=== PATIENT | female | born 1975 | race African-American/Black ===

== ENCOUNTER → 2017-02-02 | Outpatient (CLI) | payer OTHER ==
--- NOTE | 2017-02-02 16:01 | KCIC ---
Examination: Two views of chest. HISTORY History of wheezing. COMPARISON None available. Findings: The cardiomediastinal silhouette grossly appears unremarkable. There is mild prominent appearing bilateral perihilar bronchovascular markings. No evidence of pleural effusion pneumothorax identified. Impression: Mild prominent appearing bilateral perihilar bronchovascular markings likely bronchitis. Electronically signed by: Andrew Buckley (Feb 02, 2017 16:01:09)
== END | disposition home or self-care (01) ==
LOC: KCIC 15:06
PROVIDERS: ATTEND Nurse Practitioner Family
DX: R06.2 Wheezing (principal); R07.89 Other chest pain
CPT/HCPCS: 71020

== ENCOUNTER → 2018-01-24 | Outpatient (CLI) | payer OTHER ==
[2018-01-24] MEDS: ZOLPIDEM 5 MG TABLET. PO (23:48)
== END | disposition home or self-care (01) ==
LOC: SLPLAB 19:02
DX: R06.83 Snoring (principal)
CPT/HCPCS: 95810

== ENCOUNTER 2018-06-28 08:04 | Day surgery (SDC) | payer OTHER ==
[~2018-06-28 08:04] MED LIST: IV RINGERS,LACTATED 1000ML 1,000 ML IV; LIDOCAINE 1% PF 2 ML VIAL. ID; MORPHINE SULFATE 2 MG/ML DISP.SYRIN. IV; ONDANSETRON PF 4 MG/2 ML VIAL. IV; PROCHLORPERAZINE 10 MG/2 ML VIAL. IV; fentaNYL PF VIAL 100 MCG/2 ML VIAL IV
[2018-06-28] MEDS ORDERED: PROPOFOL 20 ML IV (08:16)
[2018-06-28] MEDS ORDERED: LIDOCAINE 2% 100 MG/5 ML SYRINGE. (08:16)
[2018-06-28] MEDS ORDERED: MIDAZOLAM HCL/PF 2 MG/2 ML VIAL. (08:16)
[2018-06-28 09:44] LABS: POC GLUCOSE 135 mg/dL (70-99)
== END 2018-06-28 10:27 | disposition home or self-care (01) ==
LOC: SURG 08:04
DX: J32.0 Chronic maxillary sinusitis (principal); G93.89 Other specified disorders of brain; Z88.0 Allergy status to penicillin
CPT/HCPCS: 70551; 82962; J2250; J2704

== ENCOUNTER → 2018-09-14 | Outpatient (CLI) | payer OTHER ==
[2018-06-28 09:55] VITALS: BP 133/85
[~2018-09-14] MED LIST changes: +IOHEXOL 240 MG/ML 50ML VIAL. PO ONE; -IV RINGERS,LACTATED 1000ML 1,000 ML IV; -LIDOCAINE 1% PF 2 ML VIAL. ID; -MORPHINE SULFATE 2 MG/ML DISP.SYRIN. IV; -ONDANSETRON PF 4 MG/2 ML VIAL. IV; -PROCHLORPERAZINE 10 MG/2 ML VIAL. IV; -fentaNYL PF VIAL 100 MCG/2 ML VIAL IV
[2018-09-14] MEDS: IOHEXOL 300 MG/ML 100ML VIAL. IV ONE (10:30)
[2018-09-14 11:09] LABS: CREATININE 1.2 mg/dL (0.6-1.0); GFR 59.1
--- NOTE | 2018-09-14 14:37 | RAD ---
CT ABD PELV W/ORAL IV CONTRAST dated 09/14/2018 11:50 AM Indication: Pain.ABDOMINAL PAIN, LOWER. FIBROID. PERSONAL HISTORY OF SEX REASSIGNMENT. OMNI 240, 30ML & OMNI 300, 75ML. Comparison: No comparison is available. Technique: Contiguous axial imaging of the abdomen and pelvis performed after the intravenous administration of 75 cc Omnipaque 300. One or more of the following individualized dose reduction techniques were utilized for this examination: 1. Automated exposure control 2. Adjustment of the mA and/or kV according to patient size 3. Use of iterative reconstruction technique Findings: Limited images of lung bases show mild patchy and linear opacities in the lower lobes, likely atelectasis. Heart size upper limits of normal. No pleural or pericardial effusion. Liver, spleen, pancreas, adrenal glands and kidneys are unremarkable. No hydronephrosis. There is a prominent parapelvic cyst on the right. Gallbladder is surgically absent. Partially opacified GI tract normal in caliber and contour. No focal bowel wall thickening. No inflammatory stranding in the mesentery. The appendix is not identified. No inflammatory stranding in the right lower quadrant. No ascites or lymphadenopathy. The abdominal aorta is normal in caliber. Images the pelvis show heterogeneous enlarged uterus with low-density lesion in the myometrium that measures up to 5 cm. The endometrium is not well demonstrated on this exam. The ovaries are unremarkable. No free fluid or lymphadenopathy. Bone windows show no acute findings. Multilevel spondylosis. IMPRESSION: 1. No acute abnormality of abdomen or pelvis. 2. Fibroid uterus. If indicated, a pelvic ultrasound would better evaluate. 3. Status post cholecystectomy. Electronically signed by: Abdi Sexton MD (09/14/2018 2:34 PM) [id number]
== END | disposition home or self-care (01) ==
LOC: CT 10:18
PROVIDERS: ATTEND Family Medicine
DX: D25.9 Leiomyoma of uterus, unspecified (principal); M47.896 Other spondylosis, lumbar region; N85.2 Hypertrophy of uterus; N94.89 Other specified conditions associated with female genital organs and menstrual cycle; R91.8 Other nonspecific abnormal finding of lung field; Z87.890 Personal history of sex reassignment
CPT/HCPCS: 36415; 74177; 82565; Q9966; Q9967

== ENCOUNTER 2019-07-28 07:38 | Emergency (ER) | payer MEDICAID ==
[~2019-07-28] VITALS: Ht 154.9 cm; Wt 86.2 kg
--- NOTE | 2019-07-28 07:59 | PHYS DOC ---
Past Medical History Past Medical History: Diabetes-Type II, Hypertension Past Surgical History: No Surgical History Alcohol Use: None Drug Use: None Adult General Chief Complaint Chief Complaint: OTHER COMPLAINTS HPI HPI Patient is a 44 year old male who presents with accidental ingestion of BP medication Pt with a hx of HTN, taking Triamterene HCTZ, 37.5mg, Has been taking this for years. 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 Reports he thought the 2nd pill was his usual Gabapentin. He arrives today for evaluation. No complaints. resting in no distress. No CP dizziness. Review of Systems Review of Systems Constitutional: Denies fever or chills [] Accidental ingestion of extra BP medication Eyes: Denies change in visual acuity, redness, or eye pain [] HENT: Denies nasal congestion or sore throat [] Respiratory: Denies cough or shortness of breath [] Cardiovascular: No additional information not addressed in HPI [] GI: Denies abdominal pain, nausea, vomiting, bloody stools or diarrhea [] : Denies dysuria or hematuria [] Musculoskeletal: Denies back pain or joint pain [] Integument: Denies rash or skin lesions [] Neurologic: Denies headache, focal weakness or sensory changes [] Endocrine: Denies polyuria or polydipsia [] All other systems were reviewed and found to be within normal limits, except as documented in this note. Current Medications Current Medications Glipizide Gabapentin Triamterene Allergies Allergies Allergies Coded Allergies Type Severity Reaction Last Updated Verified Penicillins Allergy Intermediate 01/24/18 Yes ciprofloxacin Allergy Intermediate itchy rash 07/28/19 Yes clindamycin Allergy Intermediate itchy rash 07/28/19 Yes azithromycin Adverse Reaction Severe "lost my taste and smell" 07/28/19 Yes Zithromax Clindamycin Physical Exam Physical Exam Constitutional: Well developed, well nourished, no acute distress, non-toxic appearance. [] HENT: Normocephalic, atraumatic, bilateral external ears normal, oropharynx moist, no oral exudates, nose normal. [] Eyes: PERRLA, EOMI, conjunctiva normal, no discharge. [] Neck: Normal range of motion, no tenderness, supple, no stridor. [] Cardiovascular:Heart rate regular rhythm, no murmur [] Lungs & Thorax: Bilateral breath sounds clear to auscultation [] Abdomen: Bowel sounds normal, soft, no tenderness, no masses, no pulsatile masses. [] Skin: Warm, dry, no erythema, no rash. [] Back: No tenderness, no CVA tenderness. [] Extremities: No tenderness, no cyanosis, no clubbing, ROM intact, no edema. [] Neurologic: Alert and oriented X 3, normal motor function, normal sensory function, no focal deficits noted. [] Psychologic: Affect normal, judgement normal, mood normal. [] Current Patient Data Vital Signs Vital Signs Date Time Temp Pulse Resp B/P (MAP) Pulse Ox O2 Delivery O2 Flow Rate FiO2 07/28/19 08:19 158/84 (108) 07/28/19 07:45 98.3 94 16 100 Room Air 98.3 EKG EKG [] Radiology/Procedures Radiology/Procedures [] Impressions: Medical evaluation, accidental overdose/ingestion of blood pressure medication Course & Med Decision Making Course & Med Decision Making Pertinent Labs and Imaging studies reviewed. (See chart for details) []Patient here for evaluation after accidental ingestion of an extra Triamterene. 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 No dizziness. States he has been on this medication for years. Reports that his home BP cuff recently broke Monitored for over 1 hour, BP at DC 160/82 Remains with no dizziness or symptoms, ate meal Stable for home care educated on home care fu and reasons to return to the ER / Kateryna Disclaimer Dragon Disclaimer This electronic medical record was generated, in whole or in part, using a voice recognition dictation system. Departure Departure Impression: Primary Impression: Hypertension Disposition: 01 HOME, SELF-CARE Condition: STABLE Referrals: ANTHONY CEDENO MD (PCP) Patient Instructions: Hypertension, Overdose, Accidental Additional Instructions: Go home and rest Purchase another BP monitor Monitor your blood pressure Change positions slowly, may get dizzy For any concerns, dizziness, passing out or other concerns return to the ER Scripts No Active Prescriptions or Reported Meds JENNIFER BELL APRN Jul 28, 2019 07:59
[2019-07-28 08:40] VITALS: BP 162/84
== END 2019-07-28 08:54 | disposition home or self-care (01) ==
LOC: ER 07:38
DX: T50.2X1A Poisoning by carbonic-anhydrase inhibitors, benzothiadiazides and other diuretics, accidental (unintentional), initial encounter (principal); I10 Essential (primary) hypertension; E11.9 Type 2 diabetes mellitus without complications; Z88.0 Allergy status to penicillin; Z88.1 Allergy status to other antibiotic agents; Y92.89 Other specified places as the place of occurrence of the external cause
CPT/HCPCS: 99283

== ENCOUNTER → 2019-10-16 | Outpatient (CLI) | payer MEDICAID ==
[~2019-10-16] MED LIST changes: +AMOX500C PO; +ARIP20TA5 PO; +CLON0.5T PO; +DILT180T7 PO; +DOCU50CA9 PO; +EXEN2PEN SQ; +GLIP5TAB10 PO; +HYDR50TA6 PO; -IOHEXOL 240 MG/ML 50ML VIAL. PO ONE; +LOSA100T14 PO; +METF100010 PO; +OMEP20TA63 PO; +OXYC1TAB15 PO; +TEST200V3 IM; +TRIA1CAP3 PO; +VENL150C PO
[2019-10-17 01:07] LABS: HEMOGLOBIN A1C 8.4 % (4.8-5.6)
== END | disposition home or self-care (01) ==
LOC: SURGPAT 12:38 → EDSEX 12:38
PROVIDERS: ATTEND Surgery
DX: Z01.818 Encounter for other preprocedural examination (principal); R22.1 Localized swelling, mass and lump, neck
CPT/HCPCS: 36415; 83036

== ENCOUNTER 2019-10-23 06:30 | Day surgery (SDC) | payer MEDICAID ==
[~2019-10-23] VITALS: Ht 154.9 cm; Wt 93.5 kg
[~2019-10-23 06:30] MED LIST changes: -AMOX500C PO; +BUPIVACAINE-EPI 0.5%-1:200000 MPF 30 ML VIAL. INJ PRN; -DOCU50CA9 PO; -OXYC1TAB15 PO
[2019-10-23] MEDS ORDERED: HYDROmorphone 2 MG/ML VIAL IV PRN (07:00)
[2019-10-23] MEDS ORDERED: MORPHINE SULFATE 2 MG/ML VIAL. IV PRN (07:00)
[2019-10-23] MEDS ORDERED: PROCHLORPERAZINE 10 MG/2 ML VIAL. IV PRN (07:00)
[2019-10-23] MEDS ORDERED: ONDANSETRON PF 4 MG/2 ML VIAL. IV PRN (07:00)
[2019-10-23] MEDS ORDERED: fentaNYL PF VIAL 100 MCG/2 ML VIAL IV PRN ×2 (07:00)
[2019-10-23] MEDS ORDERED: IV RINGERS,LACTATED 1000ML 1,000 ML IV SCH (07:00)
[2019-10-23] MEDS ORDERED: INSULIN LISPRO 100 UNIT/ML 3ML VIAL for OP,RR ONLY. SQ PRN (07:15)
[2019-10-23] MEDS ORDERED: LIDOCAINE 2% PF 5 ML VIAL. ONE (07:21)
[2019-10-23] MEDS ORDERED: PROPOFOL 20 ML IV ONE (07:21)
[2019-10-23] MEDS ORDERED: AMOX500C PO (07:24)
[2019-10-23] MEDS ORDERED: MIDAZOLAM HCL/PF 2 MG/2 ML VIAL. ONE (07:36)
[2019-10-23] MEDS ORDERED: ESMOLOL 100 MG/10 ML VIAL. IVP ONE ×2 (07:42→07:53)
[2019-10-23] MEDS ORDERED: KETOROLAC 30 MG/ML VIAL. ONE (07:53)
[2019-10-23] MEDS ORDERED: DEXAMETHASONE SOD PHOS 4 MG/ML VIAL ONE (07:53)
[2019-10-23] MEDS ORDERED: SEVOFLURANE 31 TO 60 MINUTES. IH ONE (07:53)
[2019-10-23] MEDS ORDERED: ONDANSETRON PF 4 MG/2 ML VIAL. ONE (07:53)
[2019-10-23] MEDS ORDERED: PHENYLEPHRINE in 0.9% NACL PF 1 MG/10 ML SYRINGE. IV ONE (07:54)
[2019-10-23] MEDS ORDERED: ceFAZolin 2GM PREMIX 2 GM/50 ML BAG IV ONE (08:00)
--- NOTE | 2019-10-23 08:31 | PDOC ---
BRIEF OPERATIVE NOTE Date: Oct 23, 2019 Pre-Op Diagnosis sebaceous cyst posterior neck Post-Op Diagnosis same Procedure Performed excision Surgeon Serge Anesthesia Type: General Blood Loss 5cc IV Fluid 650cc Specimens Obtained skin and subcutaneous tissue 3x2x1 cm Findings sebaceous cyst/abscess Complications none Operative Note Wk # [id number] DAVID LEZAMA MD Oct 23, 2019 08:31
[2019-10-23] MEDS ORDERED: DOCU50CA9 PO (08:37)
[2019-10-23] MEDS ORDERED: OXYC1TAB15 PO (08:37)
[2019-10-23] MEDS ORDERED: oxyCODONE/APAP 5/325 1 TAB TABLET ONE (08:38)
[2019-10-23] MEDS ORDERED: oxyCODONE/APAP 5/325 1 TAB TABLET PO ONE (08:45)
--- NOTE | 2019-10-23 08:47 | OP ---
DATE OF SURGERY: 10/23/2019 PREOPERATIVE DIAGNOSIS: Sebaceous cyst, posterior neck. POSTOPERATIVE DIAGNOSIS: Sebaceous cyst, posterior neck. PROCEDURE: Excision. SURGEON: David Lezama MD ANESTHESIA: General LMA. ESTIMATED BLOOD LOSS: 5. INTRAVENOUS FLUIDS: 650. DESCRIPTION OF PROCEDURE: The patient brought to the operating suite, given a general LMA and placed in left lateral decubitus position. Posterior neck was prepped and draped in usual sterile fashion. The elliptical incision, which had been marked in the preop area with the patient's assistance, was infiltrated with local anesthetic, incised and the skin and underlying process removed intact. Hemostasis with cautery. Wound closed with interrupted vertical mattress and simple stitches of 3-0 Prolene. Sterile dressing applied. The patient taken out of the lateral decubitus position, awakened from her anesthetic and taken to the recovery room in satisfactory condition. DAVID LEZAMA MD DR: MARY/precious JOB#: [id number] / [id number]
[2019-10-23 09:00] VITALS: BP 139/79
--- NOTE | 2019-10-25 18:06 | PATHOLOGY ---
[facility] Accession Number: [id number] . 01 Material submitted: . neck - EXCISION CYST, POSTERIOR NECK. Modifiers: posterior . 01 Clinical history: . Skin and subcutaneous tissue, 3 x 2 x 1, neck mass . 02 Diagnosis: Skin and subcutaneous tissue, posterior neck mass: - Abscess with chronic inflammation, focal foreign body giant cell reaction, and surrounding reactive fibrosis. (JPM:firmware software verification engineer; 10/25/2019) R 10/25/2019 1459 Local . 02 Comment: The abscess may well be the result of a ruptured hair follicle/follicular cyst. There is no evidence of malignancy. (JPM:firmware software verification engineer; 10/25/2019) . 02 Electronically signed: . Buzz To MD, Pathologist NPI- [id number] . 01 Gross description: . Received in formalin, labeled "Roger, [place], skin and subcutaneous tissue", is an unoriented ellipse of hairbearing, jacob-brown skin measuring 2.5 x 1.3 cm excised to a depth of 1.0 cm. The skin surface has a longitudinal defect extending from one tip to another this is inked orange. The resection margins are inked black. The specimen is serially sectioned to show a donald-white to yellow fibrous cut surface with no discrete cyst present. Contiguous sections are entirely submitted in A1-A6. ([facility]; 10/23/2019) [facility] 10/25/2019 1457 Local . 02 Pathologist provided ICD-10: L02.11, L98.9, L90.5 . 02 CPT . 188238 Specimen Comment: A courtesy copy of this report has been sent to [phone], [phone] Specimen Comment: [id number] Specimen Comment: Report sent to / DR CEDENO Specimen Comment: Report sent to Performed at: 01 [facility] [address], [place] [id number] MD Cal Angel MD Phone: [phone] Performed at: 02 [facility] [place] [address] [place], [place] [id number] MD Buzz To MD Phone: [phone]
== END 2019-10-23 09:20 | disposition home or self-care (01) ==
LOC: EDSEX → SURG 06:30
PROVIDERS: ATTEND Surgery
DX: L72.3 Sebaceous cyst (principal); G47.30 Sleep apnea, unspecified; I10 Essential (primary) hypertension; J45.909 Unspecified asthma, uncomplicated; K21.9 Gastro-esophageal reflux disease without esophagitis; E11.9 Type 2 diabetes mellitus without complications; F32.9 Major depressive disorder, single episode, unspecified; F41.9 Anxiety disorder, unspecified; G43.909 Migraine, unspecified, not intractable, without status migrainosus; Z90.49 Acquired absence of other specified parts of digestive tract; Z79.84 Long term (current) use of oral hypoglycemic drugs; Z79.899 Other long term (current) drug therapy
CPT/HCPCS: 11423; 82962; 88304; A7015; J0696; J1100; J1885; J2001; J2250; J2370; J2405; J2704; J3490

== ENCOUNTER → 2021-10-20 | Outpatient (CLI) | payer MEDICAID ==
[~2021-10-20] MED LIST changes: +AMOX500C PO; -BUPIVACAINE-EPI 0.5%-1:200000 MPF 30 ML VIAL. INJ PRN; +DOCU50CA9 PO; -HYDR50TA6 PO; +HYDR50TA9 PO; +OXYC1TAB15 PO
--- NOTE | 2021-10-20 14:40 | KCIC ---
EXAM: Right wrist, 3 views. HISTORY: Difficulty with deputy director. COMPARISON: None. FINDINGS: 3 views of the right wrist are obtained. There is no acute fracture, dislocation or subluxa tion. There is suspected negative ulnar variance, a normal variant. There is no foreign body or soft tissue lesion. IMPRESSION: No acute osseous finding. Electronically signed by: Carolina Adair MD (10/20/2021 2:38 PM) [id number]
== END ==
LOC: KCIC 14:21
PROVIDERS: ATTEND Family Medicine
DX: M25.531 Pain in right wrist (principal)
CPT/HCPCS: 73110

== ENCOUNTER → 2021-11-25 | Outpatient (CLI) | payer MEDICAID ==
--- NOTE | 2021-11-25 12:59 | KCIC ---
EXAM: MRI RIGHT WRIST DATE: 11/25/2021 10:18 AM CLINICAL HISTORY: Reason: DE QUERVAIN'S TENOSYNOVITIS, CARPAL TUNNEL SYNDROME RT WRIST / Spl. Instru ctions: / History: Chronic right wrist pain. No specific injury. COMPARISON: None. TECHNIQUE: Multiplanar, multisequence MR imaging of the right wrist was performed without IV contrast . FINDINGS: Fluid: Compartments: No significant joint effusion. Ganglion: None. Intrinsic Ligaments: The scapholunate and lunotriquetral ligaments are intact. Trace undersurface irr egularity/flattening of the TFC disc. The radial, foveal and styloid attachments are intact. Extrinsic Ligaments: Dorsal and volar extrinsic ligaments are grossly intact. Tendons: Flexor:Intact. No abnormal bowing of the flexor retinaculum. Extensor: Extensor compartment 1 tendons are thickened and increased in signal with associated te nosynovial edema and mild tenosynovitis beyond the the crossover of the extensor compartment two tend ons at the distal radius. Spaces: Carpal Tunnel:The median nerve is normal in signal and caliber within the carpal tunnel. No space -occupying lesions. Guyon Canal: The ulnar nerve is normal in signal and caliber. No space occupying lesions. Joints/Cartilage: DRUJ: Intact. Radiocarpal: No chondral defects. Midcarpal: No chondral defects. Bone Marrow Signal: No contusions or fractures. No evidence for avascular necrosis. Cystic change wit hin the capitate possibly degenerative or intraosseous ganglion. Associated: Ulnar Length: Mild ulnar minus variance. IMPRESSION: 1. Extensor compartment 1 tendinosis with soft tissue edema and tenosynovitis distal to the crossove r with the extensor compartment two tendons. 2. Ulnar minus variance. 3. Degenerative fraying of the undersurface of the TFC disc. Electronically signed by: Hector Verma MD (11/25/2021 12:57 PM) [id number]
== END ==
LOC: KCIC MRI 10:03
PROVIDERS: ATTEND Physician Assistant
DX: M21.831 Other specified acquired deformities of right forearm (principal); M65.821 Other synovitis and tenosynovitis, right upper arm; M77.8 Other enthesopathies, not elsewhere classified; G56.01 Carpal tunnel syndrome, right upper limb; M65.4 Radial styloid tenosynovitis [de Quervain]
CPT/HCPCS: 73221